=== PATIENT | female | born 1955 | race Caucasian/White ===

== ENCOUNTER 2017-01-12 18:19 | Emergency (ER) | payer BC ==
[2017-01-12 18:34] VITALS: BP 140/74
[2017-01-12] MEDS ORDERED: LORazepam 2 MG/ML MDV IVPUSH ONE (19:15)
[2017-01-12] MEDS ORDERED: Ondansetron 4 MG/2 ML SDV IVPUSH ONE (19:15)
[2017-01-12] MEDS ORDERED: Sodium Chloride 0.9% 10 ML Syringe FLUSH PRN (19:15)
[2017-01-12] MEDS ORDERED: Sodium Chloride 0.9% 1,000 ML IV ONE ×2 (19:15→20:47)
--- NOTE | 2017-01-12 19:35 | EDM.PDOC ---
ED HPI GENERAL MEDICAL PROBLEM - General Time Seen by Provider: 01/12/17 19:14 stomach Pain Score (Numeric/FACES): 4 - Related Data Allergies Allergy/AdvReac Type Severity Reaction Status Date / Time hydrocodone AdvReac Nausea and Verified 01/12/17 18:34 Vomiting oxycodone AdvReac Nausea and Verified 01/12/17 18:34 Vomiting tylenol with codeine Allergy Itching Uncoded 01/12/17 18:34 Home Meds: Home Meds Docusate Sodium [Colace] 100 mg PO DAILY 12/08/15 [History] Fish Oil/[place]-3 Fatty Acids [Fish Oil 1,000 MG] 0 mg PO DAILY 12/08/15 [History ] OXcarbazepine [Trileptal] 150 mg PO BID 12/08/15 [History] Ondansetron [Zofran ODT] 4 mg PO Q6H #20 tab.dis 12/10/15 [Rx] Cholecalciferol (Vitamin D3) [Vitamin D3] 1,000 units PO DAILY 01/12/17 [History ] Complete Eye And Body 1 tab PO DAILY 01/12/17 [History] Turmeric Root Extract [Turmeric] 500 mg PO DAILY 01/12/17 [History] Ubidecarenone [Coq-10] 100 mg PO DAILY 01/12/17 [History] sulfaSALAzine 1 dose PO BID 01/12/17 [History] Past Medical History HEENT History: Reports: Impaired vision Other HEENT History: wears eyeglasses Gastrointestinal History: Reports: Helicobacter pylori Musculoskeletal History: Reports: Osteoarthritis Neurological History: Reports: Seizure - Infectious Disease History Infectious Disease History: Reports: Chicken pox, Measles, Mumps - Past Surgical History GI Surgical History: Reports: Cholecystectomy Neurological Surgical History: Reports: None Musculoskeletal Surgical History: Reports: Hip replacement Social & Family History - Family History Family Medical History: Noncontributory Cardiac: Reports: [place] Respiratory: Reports: Sleep apnea Musculoskeletal: Reports: Fibromyalgia, Gout Neurological: Reports: CVA Psychiatric: Reports: Bipolar Endocrine/Metabolic: Reports: Diabetes, type II Oncologic: Reports: Breast - Tobacco Use Smoking Status *Q: Never Smoker - Caffeine Use Caffeine Use: Reports: Coffee - Alcohol Use Days Per Week of Alcohol Use: 0 - Recreational Drug Use Recreational Drug Use: No ED ROS GENERAL - Review of Systems Review Of Systems: See Below Constitutional: Reports: Malaise, Decreased Appetite. Denies: Fever, Chills Respiratory: Denies: Shortness of Breath Cardiovascular: Denies: Chest Pain GI/Abdominal: Reports: Abdominal Pain, Diarrhea, Decreased Appetite, Nausea, Vomiting. Denies: Hematochezia, Melena : Reports: No Symptoms Neurological: Reports: Dizziness. Denies: Headache ED EXAM, GI/ABD - Physical Exam Exam: See Below Exam Limited By: No Limitations General Appearance: WD/WN, Mild Distress, Thin Respiratory/Chest: No Respiratory Distress, Lungs Clear, Normal Breath Sounds Cardiovascular: Normal Peripheral Pulses, Regular Rate, Rhythm, No Murmur GI/Abdominal: Soft, Non-Tender, Hyperactive Bowel Sounds. No: McBurney's Sign, Moser's Sign Neurological: Alert, Oriented, Normal Cognition Psychiatric: Normal Affect, Normal Mood Skin Exam: Warm, Dry, Normal Color Course - Vital Signs Last Recorded V/S: Last Vital Signs Temp 36.6 C 01/12/17 18:31 Pulse 88 01/12/17 18:31 Resp 18 01/12/17 18:31 BP 140/74 01/12/17 18:31 Pulse Ox 96 01/12/17 18:31 - Orders/Labs/Meds Labs: Laboratory Tests 01/12/17 01/12/17 01/12/17 Range/Units 19:45 19:45 21:10 WBC 8.66 (3.98-10.04) K/mm3 RBC 4.54 (3.98-5.22) M/mm3 Hgb 14.1 (11.2-15.7) gm/L Hct 41.0 (34.1-44.9) % MCV 90.3 (79.4-94.8) fl MCH 31.1 (25.6-32.2) pg MCHC 34.4 (32.2-35.5) g/dl RDW Std Deviation 39.7 (36.4-46.3) fL Plt Count 315 (182-369) K/mm3 MPV 8.5 L (9.4-12.3) fl Neut % (Auto) 90.1 H (34.0-71.1) % Lymph % (Auto) 6.6 L (19.3-51.7) % Dane % (Auto) 3.1 L (4.7-12.5) % Eos % (Auto) 0 L (0.7-5.8) Baso % (Auto) 0.0 L (0.1-1.2) % Neut # (Auto) 7.80 H (1.56-6.13) K/mm3 Lymph # (Auto) 0.57 L (1.18-3.74) K/mm3 Dane # (Auto) 0.27 (0.24-0.36) K/mm3 Eos # (Auto) 0.00 L (0.04-0.36) K/mm3 Baso # (Auto) 0.00 L (0.01-0.08) K/mm3 Manual Slide Review Normal smear Sodium 134 L (136-145) mEq/L Potassium 3.6 (3.5-5.1) mEq/L Chloride 96 L (98-107) mEq/L Carbon Dioxide 26 (21-32) mEq/L Anion Gap 15.6 H (5-15) BUN 7 (7-18) mg/dL Creatinine 0.7 (0.55-1.02) mg/dL Est Cr Clr Drug Dosing 86.21 mL/min Estimated GFR (MDRD) > 60 (>60) mL/min BUN/Creatinine Ratio 10.0 L (14-18) Glucose 153 H (74-106) mg/dL Calcium 9.0 (8.5-10.1) mg/dL Magnesium 1.9 (1.8-2.4) mg/dl Total Bilirubin 0.5 (0.2-1.0) mg/dL AST 20 (15-37) U/L ALT 23 (14-59) U/L Alkaline Phosphatase 85 (46-116) U/L C-Reactive Protein < 0.2 (<1.0) mg/dL Total Protein 7.8 (6.4-8.2) g/dl Albumin 4.2 (3.4-5.0) g/dl Globulin 3.6 gm/dL Albumin/Globulin Ratio 1.2 (1-2) Lipase 92 (73-393) U/L Urine Color Yellow (Yellow) Urine Appearance Clear (Clear) Urine pH 7.0 (5.0-8.0) Ur Specific [place] 1.020 (1.005-1.030) Urine Protein 2+ H (Negative) Urine Glucose (UA) Negative (Negative) Urine Ketones 1+ H (Negative) Urine Occult Blood 2+ H (Negative) Urine Nitrite Negative (Negative) Urine Bilirubin Negative (Negative) Urine Urobilinogen 0.2 (0.2-1.0) Ur Leukocyte Esterase Negative (Negative) Urine RBC 5-10 H (0-5) /hpf Urine WBC 0-5 (0-5) /hpf Ur Epithelial Cells 0-5 (0-5) /hpf Amorphous Sediment Moderate H (NOT SEEN) /hpf Urine Bacteria Few (FEW) /hpf Coarse Granular Casts 0-5 (0-5) /hpf Urine Mucus Moderate H (FEW) /hpf Meds: Medications Discontinued Medications Generic Name Dose Route Start Last Admin Trade Name Freq PRN Reason Stop Dose Admin Sodium Chloride 1,000 mls @ 999 mls/hr 01/12/17 19:15 01/12/17 19:48 Normal Saline IV 01/12/17 20:15 999 mls/hr ONETIME ONE Administration Sodium Chloride 1,000 mls @ 999 mls/hr 01/12/17 20:47 01/12/17 20:57 Normal Saline IV 01/12/17 21:47 999 mls/hr ONETIME ONE Administration Lorazepam 0.5 mg 01/12/17 19:15 01/12/17 19:53 Ativan IVPUSH 01/12/17 19:16 0.5 mg ONETIME ONE Administration Metoclopramide HCl 10 mg 01/12/17 20:48 01/12/17 20:57 Reglan IVPUSH 01/12/17 20:49 10 mg ONETIME ONE Administration Ondansetron HCl 4 mg 01/12/17 19:15 01/12/17 19:50 Zofran IVPUSH 01/12/17 19:16 4 mg ONETIME ONE Administration Sodium Chloride 10 ml 01/12/17 19:15 01/12/17 19:45 Saline Flush FLUSH 10 ml ASDIRECTED PRN Administration Keep Vein Open - Re-Assessments/Exams Free Text/Narrative Re-Assessment/Exam: 01/12/17 20:56 The patient has received 1 L bolus of normal saline, Ativan for anxiety and Zofran. She continued to have nausea and vomiting. I will give her a second liter of fluids and Reglan. Her labs that have returned. White blood cell count is normal at 8.64, hgb is 14.1 and platelets are 315. CRP is within normal limits at less than 0.2. Lipase is normal at 92. Sodium is 134, potassium 3.6 and chloride is 96. Anion gap is 15.6. Magnesium is 1.9. I reviewed the lab results with the patient. awaiting her UA. She's not been able to urinate thus far. At this point with normal lab studies and findings consistent with a gastroenteritis I do not see any need for imaging at this time. Will continue to hydrate the patient and provide additional medication for nausea. Plan will be to discharge home today. 01/12/17 22:25 Patient is resting comfortably. Still has some nausea but this has significantly improved. No longer retching and vomiting. Asked for something to drink. Plan will be to see how she tolerates oral fluids. If she tolerates these well we will discharge her home with some Zofran. 01/12/17 23:06 UA has returned with 2+ protein, 1+ ketones and 2+ blood. Negative for nitrites and leukocytes. Patient did vomit up some of the water she took. However, she feels comfortable going home and asks to go home at this time. We will discharge her home with some Zofran. Departure - Departure Time of Disposition: 23:01 Disposition: Home, Self-Care 01 Clinical Impression: Gastroenteritis, Nausea & vomiting - Discharge Information Instructions: Viral Gastroenteritis, Adult, [id number], Nausea and Vomiting, Adult Referrals: Lupe Rodriguez DO [Primary Care Provider] - Forms: ED Department Discharge Additional Instructions: Zofran 4 mg sublingual times #10 dispensed reducing meds. Takes Zofran as prescribed. One tab sublingual 3 times a day as needed for nausea. Clear liquids tonight and tomorrow. may advance to bland diet as tolerated. [place] diet recommendations include bread, toast, bananas, Applesauce, soup broth , etc. If your symptoms persist beyond Friday follow up with your family practice provider. Please return to the ER should your symptoms change or worsen. ED HPI GI/ABDOMINAL - General Chief Complaint: Gastrointestinal Problem Stated Complaint: VOMITING Time Seen by Provider: 01/12/17 19:14 Source of Information: Reports: Patient History Limitations: Reports: No Limitations - History of Present Illness INITIAL COMMENTS - FREE TEXT/NARRATIVE: 61-year-old female presents for evaluation treatment of nausea, vomiting, abdominal discomfort and diarrhea. Reports that her symptoms started last evening. Current symptoms include nausea, vomiting, diarrhea, abdominal discomfort and dizziness. She states that she is unable to quantify how many times she has vomited. states that any intake comes back up. She is unable to tell me how may times she has had diarrhea. She denies any shortness of breath, chest pain, headache, hematochezia, dysuria or hematuria. patient reports the abdominal pain is generalized and involves her entire stomach. She states that she ate some raw cauliflower yesterday; which is thought to be the cause of the discomfort. Patient denies any ill contacts. She denies any recent travel. Previous abdominal surgeries including cholecystectomy. Location: generalized Quality: Reports: cramping Context: Reports: bad/questionable food. Denies: sick contact, out of country travel Associated Symptoms (-Female): Reports: diarrhea, loss of appetite, nausea/ vomiting. Denies: bloody stools, fever/chills - Related Data Allergies/ADRs: Allergies Allergy/AdvReac Type Severity Reaction Status Date / Time hydrocodone AdvReac Nausea and Verified 01/12/17 18:34 Vomiting oxycodone AdvReac Nausea and Verified 01/12/17 18:34 Vomiting tylenol with codeine Allergy Itching Uncoded 01/12/17 18:34 Home Meds: Home Meds Docusate Sodium [Colace] 100 mg PO DAILY 12/08/15 [History] Fish Oil/[place]-3 Fatty Acids [Fish Oil 1,000 MG] 0 mg PO DAILY 12/08/15 [History ] OXcarbazepine [Trileptal] 150 mg PO BID 12/08/15 [History] Ondansetron [Zofran ODT] 4 mg PO Q6H #20 tab.dis 12/10/15 [Rx] Cholecalciferol (Vitamin D3) [Vitamin D3] 1,000 units PO DAILY 01/12/17 [History ] Complete Eye And Body 1 tab PO DAILY 01/12/17 [History] Turmeric Root Extract [Turmeric] 500 mg PO DAILY 01/12/17 [History] Ubidecarenone [Coq-10] 100 mg PO DAILY 01/12/17 [History] sulfaSALAzine 1 dose PO BID 01/12/17 [History] Departure - Departure Time of Disposition: 23:01 Disposition: Home, Self-Care 01 Condition: fair Clinical Impression: Gastroenteritis, Nausea & vomiting Instructions: Viral Gastroenteritis, Adult, [id number], Nausea and Vomiting, Adult Referrals: Lupe Rodriguez DO [Primary Care Provider] - Forms: ED Department Discharge Additional Instructions: Zofran 4 mg sublingual times #10 dispensed reducing meds. Takes Zofran as prescribed. One tab sublingual 3 times a day as needed for nausea. Clear liquids tonight and tomorrow. may advance to bland diet as tolerated. [place] diet recommendations include bread, toast, bananas, Applesauce, soup broth , etc. If your symptoms persist beyond Friday follow up with your family practice provider. Please return to the ER should your symptoms change or worsen.
[2017-01-12] MEDS ORDERED: Metoclopramide 10 MG/2 ML SDV IVPUSH ONE (20:48)
== END 2017-01-12 23:14 | disposition home or self-care (01) ==
LOC: JD.ED 18:19
DX: K52.9 Noninfective gastroenteritis and colitis, unspecified (principal); M19.90 Unspecified osteoarthritis, unspecified site; Z96.649 Presence of unspecified artificial hip joint; Z79.899 Other long term (current) drug therapy; Z88.5 Allergy status to narcotic agent; Z88.8 Allergy status to other drugs, medicaments and biological substances; Z88.6 Allergy status to analgesic agent; Z90.49 Acquired absence of other specified parts of digestive tract
CPT/HCPCS: 36415; 80053; 81001; 83690; 83735; 85025; 86140; 96361; 96374; 96375; 99284; J2060; J2405; J2765; J7040; J7050